=== PATIENT | male | born 1990 | race African-American/Black ===

== ENCOUNTER 2018-01-15 14:26 | Emergency (ER) | payer SELFPAY ==
[~2018-01-15] VITALS: Ht 188 cm; Wt 83.9 kg
[2018-01-15 14:43] VITALS: BP 137/71
== END 2018-01-15 15:24 | disposition home or self-care (01) ==
LOC: ER 14:37
DX: S09.90XA Unspecified injury of head, initial encounter (principal); Y04.0XXA Assault by unarmed brawl or fight, initial encounter; Y93.89 Activity, other specified; Y99.8 Other external cause status; Y92.89 Other specified places as the place of occurrence of the external cause
CPT/HCPCS: 70450